=== PATIENT | female | born 1950 | race Caucasian/White ===

== ENCOUNTER 2020-05-14 14:10 | Outpatient (CLI) | payer MEDICARE, OTHER, SELFPAY ==
--- NOTE | 2020-05-14 14:28 | MM_ITS ---
WS: [id number] BILATERAL SCREENING DIGITAL MAMMOGRAM WITH CAD HISTORY: SCREENING COMPARISON: 09/14/2018 and 07/12/2017 Bilateral CC and MLO views submitted. Computer aided detection analyzed. Breast composition: There are scattered areas of fibroglandular density. No suspicious masses, microc alcifications or architectural distortion. Asymmetry seen on the LEFT CC projection anteriorly measur es 6 mm. Stable over multiple prior years. Benign calcifications in each breast. MM/[place] [id number] IMPRESSION: BI-RADS: 2-Benign FOLLOW UP: 1 Year Follow-up
== END 2020-05-14 14:11 | disposition home or self-care (01) ==
LOC: RADSHAW 14:17
PROVIDERS: PCP Physician Assistant Medical; Visit Provider Physician Assistant Medical
DX: Z12.31 Encounter for screening mammogram for malignant neoplasm of breast (principal)
CPT/HCPCS: 77067

== ENCOUNTER 2021-05-31 07:50 | Outpatient (CLI) | payer MEDICARE, OTHER, SELFPAY ==
--- NOTE | 2021-05-31 08:01 | MM_ITS ---
WS: [id number] Lul[facility] [place] BILATERAL SCREENING DIGITAL MAMMOGRAM WITH CAD HISTORY: Screening. COMPARISON: 05/14/2020 and 09/14/2018, 07/12/2017 Bilateral CC and MLO views submitted. Computer aided detection analyzed. Breast composition: There are scattered areas of fibroglandular density. No suspicious masses, microc alcifications or architectural distortion. There is an asymmetry measuring 6 mm in the anterior LEFT breast just lateral to the nipple which is been present on several prior examinations. Similar in felipa earance dating back to 2016. Benign calcifications in each breast. MM/[place] [id number] IMPRESSION: BI-RADS: 2-Benign FOLLOW UP: 1 Year Follow-up
== END 2021-05-31 07:51 | disposition home or self-care (01) ==
LOC: RADSHAW 07:54
PROVIDERS: PCP Physician Assistant Medical; Visit Provider Obstetrics & Gynecology
DX: Z12.31 Encounter for screening mammogram for malignant neoplasm of breast (principal)
CPT/HCPCS: 77067

== ENCOUNTER 2021-06-25 14:07 | Outpatient (CLI) | payer MEDICARE, OTHER, SELFPAY ==
--- NOTE | 2021-06-25 14:24 | XR_ITS ---
WS: [id number] PELVIS AND RIGHT HIP HISTORY: M25.559 - Pain in unspecified hip COMPARISON: None available. Right hip: No acute fracture or dislocation. Severe narrowing of the hip joint. Near bone upon bone w ith sclerosis on both sides of the hip joint. Loss of the normal smooth cortex of the femoral head. M ild osteophytic ridging at the RIGHT hip joint. Prior LEFT hip arthroplasty. Asymmetric disc space narrowing at L4-5. XR/XR hip RT 2-3V wo/w pel* [id number] IMPRESSION: 1. No hip fracture. 2. Severe RIGHT hip joint osteoarthritis. 3. Prior LEFT hip arthroplasty.
[2021-06-25 16:05] LABS: Alanine Aminotransferase 14 U/L (0-33); Albumin Level 3.9 g/dL (3.5-5.2); Alkaline Phosphatase 94 IU/L (35-105); Aspartate Amino Transferase 18 U/L (0-32); Blood Urea Nitrogen 11 mg/dL (8-23); C Reactive Protein 5.4 mg/L (0.0-4.9); Carbon Dioxide 30 mmol/L (22-29); Chloride 101 mmol/L (98-107); Glomerular Filtration Rate 71.3 mL/min (90-130); Glucose 98 mg/dL (65-115); Osmolality Calculated 287 mOsm/kg (285-295); Sodium 139 mmol/L (136-145); Thyroid Stimulating Hormone 1.52 uIU/mL (0.27-4.20); Total Bilirubin 0.3 mg/dL (0.15-1.2); Total Protein 6.9 g/dL (6.6-8.7)
[2021-06-25 16:08] LABS: Erythrocyte Sedimentation Rate 29 mm/hr (0-15)
[2021-06-29 15:52] LABS: Anti-Nuclear Antibody Pattern Nuclear, Speckled; Anti-Nuclear Antibody Screen POSITIVE (NEGATIVE)
== END 2021-06-25 14:08 | disposition home or self-care (01) ==
LOC: RAD 14:14
PROVIDERS: PCP Physician Assistant Medical; Visit Provider Nurse Practitioner Family
DX: I10 Essential (primary) hypertension (principal); R53.83 Other fatigue; Z96.641 Presence of right artificial hip joint; M16.11 Unilateral primary osteoarthritis, right hip
CPT/HCPCS: 36415; 73502; 80053; 84443; 85651; 86038; 86140; 86431

== ENCOUNTER → 2021-07-12 10:52 | Outpatient (BNVA) | payer MEDICARE, OTHER, SELFPAY | PROVIDERS: PCP Physician Assistant Medical; Visit Provider Nurse Practitioner Family | DX: E55.9 Vitamin D deficiency, unspecified (principal); I10 Essential (primary) hypertension | CPT/HCPCS: 82306 ==

== ENCOUNTER → 2021-08-06 09:00 | Outpatient (BNVA) | payer MEDICARE, OTHER, SELFPAY | PROVIDERS: PCP Nurse Practitioner Family; Visit Provider Internal Medicine | DX: R76.8 Other specified abnormal immunological findings in serum (principal); M19.90 Unspecified osteoarthritis, unspecified site; R53.83 Other fatigue; Z79.899 Other long term (current) drug therapy; Z11.59 Encounter for screening for other viral diseases | CPT/HCPCS: 36415; 80053; 81001; 81003; 82533; 82550; 82728; 82784; 83516; 83540; 83735; 84100; 85025; 85651; 86140; 86160; 86431; 86704; 86803; 86812; 87340; 99204 ==

== ENCOUNTER 2021-08-12 14:49 | Outpatient (CLI) | payer MEDICARE, OTHER, SELFPAY ==
--- NOTE | 2021-08-12 14:54 | XR_ITS ---
WS: [id number] RIGHT HAND: 2 VIEW(S) TECHNIQUE: PA and lateral. HISTORY: Chronic joint pain. COMPARISON: None available. No acute fracture or dislocation. There is mild overlapping of the second metacarpal head with the proximal second phalanx. This is pro bably due to mild subluxation. No erosions are identified. Mild narrowing of the interphalangeal join t spaces. Moderate narrowing of the first carpometacarpal joint space. XR/XR hand RT 2V [id number] IMPRESSION: Osteoarthritis at the interphalangeal joint spaces and at the first carpometaca rpal joint space.
--- NOTE | 2021-08-12 14:54 | XR_ITS ---
WS: [id number] LUMBAR SPINE: 3 VIEWS TECHNIQUE: AP, lateral and L5-S1 spot. HISTORY: Joint pain, chronic. COMPARISON: None available. Degenerative LEFT rotoscoliosis of the lumbar spine. Asymmetric disc space narrowing at the L2-3 and L3-4 vertebral bodies. No fractures. 5 mm retrolisthesis of L2. SI joints are symmetric bilaterally. No soft tissue abnormalities. Prior bilateral hip arthroplasties. XR/XR lumbar spine 2-3V* [id number] IMPRESSION: 1. Mild rotoscoliosis lumbar spine. 2. Asymmetric disc space narrowing at L2-3 and L3-4.
--- NOTE | 2021-08-12 14:54 | XR_ITS ---
WS: [id number] LEFT HAND: 2 VIEW(S) TECHNIQUE: PA and lateral. HISTORY: Chronic bilateral pain. COMPARISON: None available. No acute fracture or dislocation. Mild diffuse interphalangeal joint space narrowing. Moderate arthritis at the first and second carpom etacarpal articulations. No erosions at the metacarpal heads. XR/XR hand LT 2V [id number] IMPRESSION: 1. Mild osteoarthritis at the interphalangeal joint spaces. 2. Moderate osteoarthritis at the first and second carpal metacarpal joint spa yuniel.
== END 2021-08-12 14:50 | disposition home or self-care (01) ==
PROVIDERS: PCP Nurse Practitioner Family; Visit Provider Internal Medicine
DX: R76.8 Other specified abnormal immunological findings in serum (principal)
CPT/HCPCS: 72100; 73120

== ENCOUNTER → 2021-08-26 10:04 | Outpatient (BNVA) | payer MEDICARE, OTHER, SELFPAY | PROVIDERS: PCP Nurse Practitioner Family; Visit Provider Internal Medicine | DX: R76.8 Other specified abnormal immunological findings in serum (principal); M19.90 Unspecified osteoarthritis, unspecified site; R53.83 Other fatigue; R70.0 Elevated erythrocyte sedimentation rate; Z79.899 Other long term (current) drug therapy; Z11.1 Encounter for screening for respiratory tuberculosis; D53.9 Nutritional anemia, unspecified; R25.1 Tremor, unspecified; M54.50 Low back pain, unspecified | CPT/HCPCS: 36415; 81003; 82533; 82550; 84155; 84165; 85651; 86140; 86480; 99214 ==

== ENCOUNTER → 2021-10-01 08:16 | Outpatient (BNVA) | payer MEDICARE, OTHER, SELFPAY | PROVIDERS: PCP Nurse Practitioner Family; Referring Provider Nurse Practitioner Family; Visit Provider Internal Medicine | DX: E27.40 Unspecified adrenocortical insufficiency (principal); D53.9 Nutritional anemia, unspecified; R53.83 Other fatigue | CPT/HCPCS: 99204 ==

== ENCOUNTER → 2021-11-26 09:54 | Outpatient (BNVA) | payer MEDICARE, OTHER, SELFPAY | PROVIDERS: PCP Nurse Practitioner Family; Visit Provider Internal Medicine | DX: D53.9 Nutritional anemia, unspecified (principal); E27.40 Unspecified adrenocortical insufficiency; Z79.899 Other long term (current) drug therapy; M19.90 Unspecified osteoarthritis, unspecified site; R76.8 Other specified abnormal immunological findings in serum; R70.0 Elevated erythrocyte sedimentation rate | CPT/HCPCS: 85025 ==

== ENCOUNTER → 2021-11-29 09:46 | Outpatient (BNVA) | payer MEDICARE, OTHER, SELFPAY | PROVIDERS: PCP Nurse Practitioner Family; Visit Provider Internal Medicine | DX: R70.0 Elevated erythrocyte sedimentation rate (principal); R76.8 Other specified abnormal immunological findings in serum; M19.90 Unspecified osteoarthritis, unspecified site; Z79.899 Other long term (current) drug therapy; D53.9 Nutritional anemia, unspecified; E27.40 Unspecified adrenocortical insufficiency | CPT/HCPCS: 80053; 84439; 85025; 85651; 86140; 86376 ==

== ENCOUNTER → 2021-12-01 10:39 | Outpatient (BNVA) | payer MEDICARE, OTHER, SELFPAY | PROVIDERS: PCP Nurse Practitioner Family; Visit Provider Internal Medicine | DX: E27.40 Unspecified adrenocortical insufficiency (principal); R53.83 Other fatigue | CPT/HCPCS: 99214 ==

== ENCOUNTER → 2021-12-07 08:24 | Outpatient (BNVA) | payer MEDICARE, OTHER, SELFPAY | PROVIDERS: PCP Nurse Practitioner Family; Visit Provider Internal Medicine | DX: M54.50 Low back pain, unspecified (principal); M19.90 Unspecified osteoarthritis, unspecified site; R70.0 Elevated erythrocyte sedimentation rate; R76.8 Other specified abnormal immunological findings in serum; Z96.641 Presence of right artificial hip joint | CPT/HCPCS: 72040; 99214 ==

== ENCOUNTER 2021-12-07 09:41 | Outpatient (CLI) | payer MEDICARE, OTHER, SELFPAY ==
--- NOTE | 2021-12-07 09:47 | XR_ITS ---
WS: [id number] CERVICAL SPINE FLEXION EXTENSION TECHNIQUE: 3 views of the cervical spine: lateral neutral, flexion and extension views. CLINICAL INFORMATION: R70.0 - Elevated erythrocyte sedimentation rate COMPARISON: None. FINDINGS: Straightening of the normal cervical lordosis with slight reversal. Advanced spondylitic changes. Sli ght anterolisthesis C2 on C3. Disc space narrowing worse at C3-C4, C5-C6, and C6-C7. Normal preverteb ral soft tissues. Normal C1-2 articulation. No significant instability on flexion-extension. Normal p revertebral soft tissues. Posterior elements are normal. No other significant findings. XR/XR cervical spine fl/ex [id number] IMPRESSION: Advanced spondylitic changes. No instability on flexion-extension.
== END 2021-12-07 09:42 | disposition home or self-care (01) ==
PROVIDERS: PCP Nurse Practitioner Family; Visit Provider Internal Medicine
DX: R70.0 Elevated erythrocyte sedimentation rate (principal); M54.50 Low back pain, unspecified
CPT/HCPCS: 72040

== ENCOUNTER → 2021-12-20 09:20 | Outpatient (BNVA) | payer MEDICARE, OTHER, SELFPAY | PROVIDERS: PCP Nurse Practitioner Family; Referring Provider Internal Medicine; Visit Provider Anesthesiology Pain Medicine | DX: M47.816 Spondylosis without myelopathy or radiculopathy, lumbar region (principal); M41.9 Scoliosis, unspecified | CPT/HCPCS: 99204 ==

== ENCOUNTER → 2021-12-29 14:27 | Outpatient (BNVA) | payer MEDICARE, OTHER, SELFPAY | PROVIDERS: PCP Nurse Practitioner Family; Visit Provider Anesthesiology Pain Medicine | DX: Z79.891 Long term (current) use of opiate analgesic (principal); M47.816 Spondylosis without myelopathy or radiculopathy, lumbar region | CPT/HCPCS: 64493; 64494; 64495; J3490 ==

== ENCOUNTER 2022-01-12 10:36 | Outpatient (CLI) | payer MEDICARE, OTHER, SELFPAY ==
--- NOTE | 2022-01-12 11:00 | XR_ITS ---
WS: [id number] DEXA (DUAL ENERGY X-RAY ABSORPTIOMETRY) Bone mineral density was performed using a Open[employer] machine. HISTORY: Check bone density COMPARISON: 10/30/2018 Lumbar spine BMD (L1-L4): 1.041 g/cm2 T score: -1.2 Z score: -0.7 Left forearm BMD: 0.779 g/cm2. T score: -1.1 Z score: 0.6 Compared to the prior study from 10/30/2018. Lumbar spine bone mineral density has decreased by 0.9%. LEFT forearm bone mineral density has increased by 1.1%. XR/XR DEXA axial skeleton* [id number] IMPRESSION: OSTEOPENIA based upon the WHO classification for females. No significant change in bone mineral density since the prior study.
== END 2022-01-12 10:37 | disposition home or self-care (01) ==
LOC: RAD 10:41
PROVIDERS: PCP Nurse Practitioner Family; Visit Provider Internal Medicine
DX: E27.40 Unspecified adrenocortical insufficiency (principal); D53.9 Nutritional anemia, unspecified; M85.80 Other specified disorders of bone density and structure, unspecified site
CPT/HCPCS: 77080

== ENCOUNTER → 2022-01-18 10:04 | Outpatient (BNVA) | payer MEDICARE, OTHER, SELFPAY | PROVIDERS: PCP Nurse Practitioner Family; Visit Provider Anesthesiology Pain Medicine | DX: M47.816 Spondylosis without myelopathy or radiculopathy, lumbar region (principal); M41.9 Scoliosis, unspecified; M79.604 Pain in right leg; M79.605 Pain in left leg | CPT/HCPCS: 99214 ==

== ENCOUNTER → 2022-01-26 14:21 | Outpatient (BNVA) | payer MEDICARE, OTHER, SELFPAY | PROVIDERS: PCP Nurse Practitioner Family; Visit Provider Anesthesiology Pain Medicine | DX: M47.816 Spondylosis without myelopathy or radiculopathy, lumbar region (principal) | CPT/HCPCS: 64635; 64636; J1030 ==

== ENCOUNTER → 2022-02-04 12:28 | Day surgery (SDC) | payer MEDICARE, OTHER, SELFPAY ==
[2022-02-04 12:30] VITALS: BP 159/77; PULSE 61; RESP 18; TEMP 36.2; O2SAT 97; BMI 38.9
[2022-02-04] MEDS: cosyntropin 0.25 mg SDV IVP (12:53)
[2022-02-04 13:34] LABS: Cosyntropin Baseline 3.46 mcg/dL
[2022-02-04 13:45] LABS: Creatine Phosphokinase 79 U/L (26-192)
[2022-02-04 14:09] LABS: Cosyntropin 30 Minute 16.64 mcg/dL
[2022-02-04 14:42] LABS: Cosyntropin 1 Hour 18.96 mcg/dL
== END ==
PROVIDERS: PCP Nurse Practitioner Family; Referring Provider Internal Medicine; Visit Provider Internal Medicine
DX: E27.40 Unspecified adrenocortical insufficiency (principal); D53.9 Nutritional anemia, unspecified
CPT/HCPCS: 36415; 82533; 82550; 96374; J0834

== ENCOUNTER → 2022-02-14 13:18 | Outpatient (BNVA) | payer MEDICARE, OTHER, SELFPAY | PROVIDERS: PCP Nurse Practitioner Family; Visit Provider Anesthesiology Pain Medicine | DX: M47.816 Spondylosis without myelopathy or radiculopathy, lumbar region (principal) | CPT/HCPCS: 64635; 64636; J1030 ==

== ENCOUNTER → 2022-02-16 10:07 | Outpatient (BNVA) | payer MEDICARE, OTHER, SELFPAY | PROVIDERS: PCP Nurse Practitioner Family; Visit Provider Internal Medicine | DX: R70.0 Elevated erythrocyte sedimentation rate (principal); M19.90 Unspecified osteoarthritis, unspecified site; R76.8 Other specified abnormal immunological findings in serum; Z79.899 Other long term (current) drug therapy | CPT/HCPCS: 80053; 82533; 82550; 85025; 85651; 86140 ==

== ENCOUNTER → 2022-02-28 08:53 | Outpatient (BNVA) | payer MEDICARE, OTHER, SELFPAY | PROVIDERS: PCP Nurse Practitioner Family; Visit Provider Anesthesiology Pain Medicine | DX: M47.816 Spondylosis without myelopathy or radiculopathy, lumbar region (principal); M41.9 Scoliosis, unspecified; M79.604 Pain in right leg; M79.605 Pain in left leg | CPT/HCPCS: 99214 ==

== ENCOUNTER 2022-02-28 09:50 | Outpatient (CLI) | payer MEDICARE, OTHER, SELFPAY ==
[2022-03-01 11:17] LABS: CENTROMERE B ANTIBODY <1.0 NEG AI (<1.0 NEG); JO-1 ANTIBODY <1.0 NEG AI (<1.0 NEG); RNP ANTIBODY <1.0 NEG AI (<1.0 NEG); SCL-70 ANTIBODY <1.0 NEG AI (<1.0 NEG); SJOGREN'S ANTIBODY (SS-A) <1.0 NEG AI (<1.0 NEG); SM ANTIBODY <1.0 NEG AI (<1.0 NEG); SS-B <1.0 NEG AI (<1.0 NEG)
[2022-03-01 12:51] LABS: COMPLEMENT COMPONENT C3C 132 mg/dL (83-193); COMPLEMENT COMPONENT C4C 45 mg/dL (15-57)
[2022-03-01 14:37] LABS: THYROID PEROXIDASE ANTIBODIES <1 IU/mL (<9)
[2022-03-02 12:22] LABS: ANA SCREEN, IFA POSITIVE (NEGATIVE)
[2022-03-02 15:58] LABS: COMPLEMENT, TOTAL (CH50) >60 U/mL (31-60)
[2022-03-03 13:08] LABS: ANA PATTERN Nuclear, Speckled
[2022-03-03 15:47] LABS: DNA AB (DS) CRITHIDIA,IFA NEGATIVE (NEGATIVE)
== END 2022-02-28 09:51 | disposition home or self-care (01) ==
LOC: LAB 09:54
PROVIDERS: PCP Nurse Practitioner Family; Visit Provider Internal Medicine
DX: M79.7 Fibromyalgia (principal); R53.83 Other fatigue; R76.8 Other specified abnormal immunological findings in serum
CPT/HCPCS: 86160; 86162; 86235; 86255; 86376

== ENCOUNTER 2022-03-14 20:00 | Outpatient (CLI) | payer MEDICARE, OTHER, SELFPAY | END 2022-03-14 20:01 | disposition home or self-care (01) | LOC: SLEEP 03-15 10:31 | PROVIDERS: PCP Nurse Practitioner Family; Visit Provider Nurse Practitioner Family | DX: G47.33 Obstructive sleep apnea (adult) (pediatric) (principal) | CPT/HCPCS: 95810 ==

== ENCOUNTER → 2022-03-15 15:18 | Outpatient (BNVA) | payer MEDICARE, OTHER, SELFPAY | PROVIDERS: PCP Nurse Practitioner Family; Visit Provider Internal Medicine | DX: R76.8 Other specified abnormal immunological findings in serum (principal); M19.90 Unspecified osteoarthritis, unspecified site; Z79.899 Other long term (current) drug therapy; M54.50 Low back pain, unspecified | CPT/HCPCS: 99213; 99214 ==

== ENCOUNTER 2022-04-27 20:00 | Outpatient (CLI) | payer MEDICARE, OTHER, SELFPAY | END 2022-04-27 20:01 | disposition home or self-care (01) | LOC: SLEEP 04-28 04:09 | PROVIDERS: PCP Nurse Practitioner Family; Visit Provider Nurse Practitioner Family | DX: G47.33 Obstructive sleep apnea (adult) (pediatric) (principal) | CPT/HCPCS: 95811 ==

== ENCOUNTER → 2022-05-02 09:31 | Outpatient (BNVA) | payer MEDICARE, OTHER, SELFPAY | PROVIDERS: PCP Nurse Practitioner Family; Visit Provider Anesthesiology Pain Medicine | DX: M47.816 Spondylosis without myelopathy or radiculopathy, lumbar region (principal); M41.9 Scoliosis, unspecified; M79.604 Pain in right leg; M79.605 Pain in left leg | CPT/HCPCS: 99213 ==

== ENCOUNTER → 2022-05-30 09:24 | Outpatient (BNVA) | payer MEDICARE, OTHER, SELFPAY | PROVIDERS: PCP Nurse Practitioner Family; Visit Provider Internal Medicine | DX: Z13.1 Encounter for screening for diabetes mellitus (principal); R73.9 Hyperglycemia, unspecified; R53.83 Other fatigue; E66.01 Morbid (severe) obesity due to excess calories; G47.30 Sleep apnea, unspecified; E78.00 Pure hypercholesterolemia, unspecified; Z68.41 Body mass index [BMI] 40.0-44.9, adult | CPT/HCPCS: 99214 ==

== ENCOUNTER → 2022-05-31 09:43 | Outpatient (BNVA) | payer MEDICARE, OTHER, SELFPAY | PROVIDERS: PCP Nurse Practitioner Family; Visit Provider Internal Medicine | DX: R73.9 Hyperglycemia, unspecified (principal); E78.00 Pure hypercholesterolemia, unspecified; Z13.1 Encounter for screening for diabetes mellitus; R53.83 Other fatigue | CPT/HCPCS: 80061; 83036 ==

== ENCOUNTER 2022-08-01 06:00 | Outpatient (CLI) | payer MEDICARE, OTHER, SELFPAY | END 2022-08-01 06:01 | disposition home or self-care (01) | LOC: RAD 08-31 06:22 | PROVIDERS: PCP Nurse Practitioner Family; Visit Provider Nurse Practitioner Family | DX: M16.12 Unilateral primary osteoarthritis, left hip (principal) | CPT/HCPCS: 73502; 99214 ==

== ENCOUNTER → 2022-08-01 08:43 | Outpatient (BNVA) | payer MEDICARE, OTHER, SELFPAY | PROVIDERS: PCP Nurse Practitioner Family; Visit Provider Anesthesiology Pain Medicine | DX: M47.816 Spondylosis without myelopathy or radiculopathy, lumbar region (principal); M48.062 Spinal stenosis, lumbar region with neurogenic claudication; M79.604 Pain in right leg; M16.12 Unilateral primary osteoarthritis, left hip; M41.9 Scoliosis, unspecified | CPT/HCPCS: 73502; 99214 ==

== ENCOUNTER → 2022-08-01 10:36 | Outpatient (BNVA) | payer MEDICARE, OTHER, SELFPAY | PROVIDERS: PCP Nurse Practitioner Family; Visit Provider Internal Medicine | DX: R73.03 Prediabetes (principal); R53.83 Other fatigue; G47.30 Sleep apnea, unspecified; M81.0 Age-related osteoporosis without current pathological fracture; E66.9 Obesity, unspecified; L90.0 Lichen sclerosus et atrophicus; Z13.1 Encounter for screening for diabetes mellitus; Z68.39 Body mass index [BMI] 39.0-39.9, adult | CPT/HCPCS: 99214 ==

== ENCOUNTER → 2022-08-10 09:21 | Outpatient (BNVA) | payer MEDICARE, OTHER, SELFPAY | PROVIDERS: PCP Nurse Practitioner Family; Visit Provider Internal Medicine | DX: R76.8 Other specified abnormal immunological findings in serum (principal); Z79.899 Other long term (current) drug therapy; I10 Essential (primary) hypertension; M79.7 Fibromyalgia | CPT/HCPCS: 80053; 80061; 85025; 85651; 86140 ==

== ENCOUNTER → 2022-08-23 14:25 | Outpatient (BNVA) | payer MEDICARE, OTHER, SELFPAY | PROVIDERS: PCP Nurse Practitioner Family; Visit Provider Internal Medicine | DX: R76.8 Other specified abnormal immunological findings in serum (principal); Z79.899 Other long term (current) drug therapy; M79.7 Fibromyalgia; M19.90 Unspecified osteoarthritis, unspecified site | CPT/HCPCS: 99213; 99214 ==

== ENCOUNTER → 2022-08-31 08:27 | Outpatient (BNVA) | payer MEDICARE, OTHER, SELFPAY | PROVIDERS: PCP Nurse Practitioner Family; Visit Provider Anesthesiology Pain Medicine | DX: M47.816 Spondylosis without myelopathy or radiculopathy, lumbar region (principal); M41.9 Scoliosis, unspecified; M25.551 Pain in right hip; M54.10 Radiculopathy, site unspecified | CPT/HCPCS: 99214 ==

== ENCOUNTER → 2022-09-28 08:34 | Outpatient (BNVA) | payer MEDICARE, OTHER, SELFPAY | PROVIDERS: PCP Nurse Practitioner Family; Visit Provider Anesthesiology Pain Medicine | DX: M54.16 Radiculopathy, lumbar region (principal); M47.816 Spondylosis without myelopathy or radiculopathy, lumbar region; M41.9 Scoliosis, unspecified; M25.551 Pain in right hip; M79.604 Pain in right leg; M79.605 Pain in left leg | CPT/HCPCS: 99214 ==

== ENCOUNTER 2022-10-07 12:38 | Outpatient (CLI) | payer MEDICARE, OTHER, SELFPAY ==
--- NOTE | 2022-10-07 13:15 | MR_ITS ---
WS: [id number] MRI LUMBAR SPINE NONCONTRAST HISTORY: M48.062 - Spinal stenosis, lumbar region with neurogenic pain.... COMPARISON: Lumbar spine radiograph 08/12/2021 TECHNIQUE: Sagittal and axial multisequence imaging is submitted. Chronic biconcave fracture at T11. Retropulsion of the posterior superior endplate by 5 mm. This frac ture was also present on the radiograph from 08/12/2021. There is contact and slight displacement of t he conus. Lumbar degenerative scoliosis. Advanced degenerative disc disease and osteophytosis from L2 through L 5. Retrolisthesis of L2 and L3 by 5 mm. Marrow edema in the adjacent endplates of L3 and L4. Conus terminates normally at T12. T10-11: Moderate bilateral foraminal stenosis in part due to the retropulsion of T11. L1-L2: Diffuse disc bulging with facet and ligamentum flavum arthritis. Very small foraminal narrowin g. L2-L3: Retrolisthesis of L2 with annular disc bulging and facet and ligamentum flavum hypertrophy. Mi ld central, bilateral foraminal subarticular recess stenosis. Slightly greater stenosis RIGHT foramen . L3-L4: Marked annular disc bulging with severe ligamentum flavum and facet arthritis. Asymmetric disc space narrowing to the LEFT. There is deformity of the thecal sac and disc extension into the subart icular recesses. Most significant displacement of the LEFT L4 nerve root. Severe central, bilateral s ubarticular recess stenosis and moderate foraminal stenosis. L4-L5: Diffuse annular disc bulging. LEFT hemilaminectomy defect. Disc and osteophyte encroachment ca using LEFT subarticular recess and foraminal stenosis. L5-S1: Mild annular disc bulging and osteophytic ridging with a central disc protrusion. Mild central , bilateral subarticular recess and foraminal stenosis. Paravertebral soft tissues are negative. MR/MR lumbar spine wo con* [id number] IMPRESSION: 1. Advanced degenerative rotoscoliosis of the lumbar spine. Severe disc degene ration at L2-3, L3-4 and L4-5. 2. Biconcave remote T11 fracture with 5 mm retropulsion of the posterior super ior endplate. Moderate bilateral foraminal stenosis at T10-11 due to the T11 fr acture. 3. Severe central, bilateral subarticular recess and moderate foraminal stenos is at L3-4 is multifactorial. 4. LEFT subarticular recess and foraminal stenosis at L4-5. 5. Mild central, bilateral subarticular recess and foraminal stenosis at L2-3 and L5-S1.
== END 2022-10-07 12:39 | disposition home or self-care (01) ==
PROVIDERS: PCP Nurse Practitioner Family; Visit Provider Anesthesiology Pain Medicine
DX: M48.062 Spinal stenosis, lumbar region with neurogenic claudication (principal)
CPT/HCPCS: 72148

== ENCOUNTER → 2022-10-27 10:03 | Outpatient (BNVA) | payer MEDICARE, OTHER, SELFPAY | PROVIDERS: PCP Nurse Practitioner Family; Visit Provider Anesthesiology Pain Medicine | DX: M54.16 Radiculopathy, lumbar region (principal); M41.9 Scoliosis, unspecified; M47.816 Spondylosis without myelopathy or radiculopathy, lumbar region; M25.551 Pain in right hip | CPT/HCPCS: 99214 ==

== ENCOUNTER → 2022-11-08 10:41 | Outpatient (BNVA) | payer MEDICARE, OTHER, SELFPAY | PROVIDERS: PCP Nurse Practitioner Family; Visit Provider Internal Medicine | DX: R73.03 Prediabetes (principal); M81.0 Age-related osteoporosis without current pathological fracture; G62.9 Polyneuropathy, unspecified; G47.30 Sleep apnea, unspecified; R53.83 Other fatigue; E66.9 Obesity, unspecified; Z68.38 Body mass index [BMI] 38.0-38.9, adult | CPT/HCPCS: 99214 ==

== ENCOUNTER → 2022-11-24 09:45 | Outpatient (BNVA) | payer MEDICARE, OTHER, SELFPAY | PROVIDERS: PCP Nurse Practitioner Family; Visit Provider Internal Medicine | DX: L90.0 Lichen sclerosus et atrophicus (principal); G62.9 Polyneuropathy, unspecified; R73.03 Prediabetes; M81.0 Age-related osteoporosis without current pathological fracture; Z13.1 Encounter for screening for diabetes mellitus; R53.83 Other fatigue | CPT/HCPCS: 80053; 82306; 82310; 82607; 83036; 83970; 84425; 84439; 84443 ==

== ENCOUNTER → 2022-12-26 13:59 | Outpatient (BNVA) | payer MEDICARE, OTHER, SELFPAY | PROVIDERS: PCP Nurse Practitioner Family; Visit Provider Internal Medicine | DX: R76.8 Other specified abnormal immunological findings in serum (principal); M79.7 Fibromyalgia; M19.90 Unspecified osteoarthritis, unspecified site; M48.00 Spinal stenosis, site unspecified; G47.30 Sleep apnea, unspecified; R53.83 Other fatigue; G62.9 Polyneuropathy, unspecified | CPT/HCPCS: 99213 ==

== ENCOUNTER 2023-01-13 07:35 | Outpatient (CLI) | payer MEDICARE, OTHER, SELFPAY ==
--- NOTE | 2023-01-13 07:50 | MM_ITS ---
WS: [id number] VIEWS: MLO and CC views both breasts. 3D digital tomosynthesis is also included in this exam. Comparison made with prior exam of 09/21/2012, 05/16/2016, 07/12/2017, 09/14/2018, 05/14/2020. 05/31/2021. . Findings: There was no sign of mass, architectural distortion or suspicious calcification in either breast. Sta ble appearing nodular densities in both breasts.Scattered fibroglandular densities in both breasts. MM/[place] [id number] Impression: BI-RADS: 2-Benign FOLLOW-UP: 1 Year Follow-up This mammogram was also analyzed by the Computer Aided Detection System [employer].
== END 2023-01-13 07:36 | disposition home or self-care (01) ==
PROVIDERS: PCP Nurse Practitioner Family; Visit Provider Nurse Practitioner Family
DX: Z12.31 Encounter for screening mammogram for malignant neoplasm of breast (principal); R53.83 Other fatigue; G47.30 Sleep apnea, unspecified; R73.03 Prediabetes; E66.9 Obesity, unspecified; M81.0 Age-related osteoporosis without current pathological fracture; G62.9 Polyneuropathy, unspecified; E78.00 Pure hypercholesterolemia, unspecified; Z68.37 Body mass index [BMI] 37.0-37.9, adult
CPT/HCPCS: 77063; 77067; 99214

== ENCOUNTER → 2023-01-25 09:44 | Outpatient (BNVA) | payer MEDICARE, OTHER, SELFPAY | PROVIDERS: PCP Nurse Practitioner Family; Visit Provider Anesthesiology Pain Medicine | DX: M47.816 Spondylosis without myelopathy or radiculopathy, lumbar region (principal); M48.00 Spinal stenosis, site unspecified; G62.9 Polyneuropathy, unspecified; M41.9 Scoliosis, unspecified; M25.551 Pain in right hip | CPT/HCPCS: 99214 ==

== ENCOUNTER → 2023-03-15 09:25 | Outpatient (BNVA) | payer MEDICARE, OTHER, SELFPAY | PROVIDERS: PCP Nurse Practitioner Family; Visit Provider Nurse Practitioner Family | DX: I10 Essential (primary) hypertension (principal); R73.03 Prediabetes; L90.0 Lichen sclerosus et atrophicus | CPT/HCPCS: 80053; 80061; 82306; 83036; 84443; 85025 ==

== ENCOUNTER → 2023-04-18 08:59 | Outpatient (BNVA) | payer MEDICARE, OTHER, SELFPAY | PROVIDERS: PCP Nurse Practitioner Family; Visit Provider Internal Medicine | DX: E66.9 Obesity, unspecified (principal); E78.00 Pure hypercholesterolemia, unspecified; R73.03 Prediabetes | CPT/HCPCS: 80053; 80061; 82043; 83036 ==

== ENCOUNTER → 2023-04-24 10:14 | Outpatient (BNVA) | payer MEDICARE, OTHER, SELFPAY | PROVIDERS: PCP Nurse Practitioner Family; Visit Provider Internal Medicine | DX: E11.9 Type 2 diabetes mellitus without complications (principal); R53.83 Other fatigue; G47.30 Sleep apnea, unspecified; M81.0 Age-related osteoporosis without current pathological fracture; R76.8 Other specified abnormal immunological findings in serum; M79.7 Fibromyalgia; M19.90 Unspecified osteoarthritis, unspecified site; M48.00 Spinal stenosis, site unspecified; Z79.52 Long term (current) use of systemic steroids | CPT/HCPCS: 99214 ==

== ENCOUNTER → 2023-07-26 10:27 | Outpatient (BNVA) | payer MEDICARE, OTHER, SELFPAY | PROVIDERS: PCP Nurse Practitioner Family; Visit Provider Internal Medicine | DX: E11.9 Type 2 diabetes mellitus without complications (principal) | CPT/HCPCS: 80053; 80061; 82043; 83036 ==

== ENCOUNTER → 2023-08-01 14:04 | Outpatient (BNVA) | payer MEDICARE, OTHER, SELFPAY | PROVIDERS: PCP Nurse Practitioner Family; Visit Provider Internal Medicine | DX: R76.8 Other specified abnormal immunological findings in serum (principal); M79.7 Fibromyalgia; M19.90 Unspecified osteoarthritis, unspecified site; M48.00 Spinal stenosis, site unspecified; G47.30 Sleep apnea, unspecified; R53.83 Other fatigue; E11.9 Type 2 diabetes mellitus without complications; E78.00 Pure hypercholesterolemia, unspecified | CPT/HCPCS: 99213; 99214 ==

== ENCOUNTER → 2023-10-24 09:19 | Outpatient (BNVA) | payer MEDICARE, OTHER, SELFPAY | PROVIDERS: PCP Nurse Practitioner Family; Visit Provider Internal Medicine | DX: F41.9 Anxiety disorder, unspecified (principal); R70.0 Elevated erythrocyte sedimentation rate | CPT/HCPCS: 80053; 85025 ==

== ENCOUNTER → 2023-10-31 14:49 | Outpatient (BNVA) | payer MEDICARE, OTHER, SELFPAY | PROVIDERS: PCP Nurse Practitioner Family; Visit Provider Internal Medicine | DX: R76.8 Other specified abnormal immunological findings in serum (principal); M79.7 Fibromyalgia; M19.90 Unspecified osteoarthritis, unspecified site; M48.00 Spinal stenosis, site unspecified | CPT/HCPCS: 99214 ==

== ENCOUNTER 2024-01-15 08:10 | Outpatient (CLI) | payer MEDICARE, OTHER, SELFPAY ==
--- NOTE | 2024-01-15 08:41 | MM_ITS ---
WS: [id number] BILATERAL SCREENING DIGITAL TOMOSYNTHESIS MAMMOGRAM WITH CAD HISTORY: SCREENING COMPARISON: 01/13/2023, 05/31/2021 Bilateral CC and MLO views with tomosynthesis and synthetic mammography submitted. Computer aided det ection analyzed. Breast composition: There are scattered areas of fibroglandular density. No suspicious masses, microc alcifications or architectural distortion. Scattered nodules and asymmetries are stable. IMPRESSION: MM/[place] [id number] BI-RADS: 2-Benign FOLLOW UP: 1 Year Follow-up
== END 2024-01-15 08:11 | disposition home or self-care (01) ==
LOC: RAD 08:11
PROVIDERS: PCP Nurse Practitioner Family; Visit Provider Nurse Practitioner Family
DX: Z12.31 Encounter for screening mammogram for malignant neoplasm of breast (principal); R92.323 Mammographic fibroglandular density, bilateral breasts; N64.89 Other specified disorders of breast
CPT/HCPCS: 77063; 77067

== ENCOUNTER → 2024-01-25 08:38 | Outpatient (BNVA) | payer MEDICARE, OTHER, SELFPAY | PROVIDERS: PCP Nurse Practitioner Family; Visit Provider Internal Medicine | DX: E78.00 Pure hypercholesterolemia, unspecified (principal); R53.83 Other fatigue; G47.30 Sleep apnea, unspecified; M81.0 Age-related osteoporosis without current pathological fracture; E11.9 Type 2 diabetes mellitus without complications; I10 Essential (primary) hypertension | CPT/HCPCS: 80053; 80061; 82043; 83036 ==

== ENCOUNTER → 2024-01-29 15:44 | Outpatient (BNVA) | payer MEDICARE, OTHER, SELFPAY | PROVIDERS: PCP Nurse Practitioner Family; Visit Provider Nurse Practitioner Family | DX: E55.9 Vitamin D deficiency, unspecified (principal); M62.838 Other muscle spasm | CPT/HCPCS: 82306; 83735 ==

== ENCOUNTER → 2024-02-01 09:30 | Outpatient (BNVA) | payer MEDICARE, OTHER, SELFPAY | PROVIDERS: PCP Nurse Practitioner Family; Visit Provider Internal Medicine | DX: L90.0 Lichen sclerosus et atrophicus (principal); E11.9 Type 2 diabetes mellitus without complications; E55.9 Vitamin D deficiency, unspecified; E78.00 Pure hypercholesterolemia, unspecified; R53.83 Other fatigue | CPT/HCPCS: 99214 ==

== ENCOUNTER → 2024-04-23 09:47 | Outpatient (BNVA) | payer MEDICARE, OTHER, SELFPAY | PROVIDERS: PCP Nurse Practitioner Family; Visit Provider Internal Medicine | DX: E11.9 Type 2 diabetes mellitus without complications (principal); E55.9 Vitamin D deficiency, unspecified; E78.00 Pure hypercholesterolemia, unspecified; L90.0 Lichen sclerosus et atrophicus | CPT/HCPCS: 80053; 80061; 82043; 82306; 83036 ==

== ENCOUNTER → 2024-07-04 09:14 | Outpatient (BNVA) | payer MEDICARE, OTHER, SELFPAY | PROVIDERS: PCP Nurse Practitioner Family; Visit Provider Internal Medicine | DX: E11.9 Type 2 diabetes mellitus without complications (principal); E78.00 Pure hypercholesterolemia, unspecified; E55.9 Vitamin D deficiency, unspecified; R53.83 Other fatigue; G47.30 Sleep apnea, unspecified; Z99.89 Dependence on other enabling machines and devices | CPT/HCPCS: 99214 ==

== ENCOUNTER → 2025-01-21 10:05 | Outpatient (BNVA) | payer MEDICARE, OTHER, SELFPAY | PROVIDERS: PCP Nurse Practitioner Family; Visit Provider Nurse Practitioner Family | DX: R25.2 Cramp and spasm (principal); E11.9 Type 2 diabetes mellitus without complications; E78.00 Pure hypercholesterolemia, unspecified; E55.9 Vitamin D deficiency, unspecified; L90.0 Lichen sclerosus et atrophicus | CPT/HCPCS: 80053; 80061; 82043; 82306; 83036; 83735 ==

== ENCOUNTER → 2025-01-23 11:48 | Outpatient (BNVA) | payer MEDICARE, OTHER, SELFPAY | PROVIDERS: PCP Nurse Practitioner Family; Visit Provider Internal Medicine | DX: E11.9 Type 2 diabetes mellitus without complications (principal); E55.9 Vitamin D deficiency, unspecified; R53.83 Other fatigue; G47.30 Sleep apnea, unspecified; E78.00 Pure hypercholesterolemia, unspecified | CPT/HCPCS: 99214 ==

== ENCOUNTER 2025-03-18 10:18 | Outpatient (CLI) | payer MEDICARE, OTHER, SELFPAY ==
--- NOTE | 2025-03-18 10:20 | MM_ITS ---
WS: [id number] BILATERAL 3D TOMOSYNTHESIS DIGITAL SCREENING MAMMOGRAPHY WITH CAD CLINICAL INFORMATION: Z12.39 - Encounter for other screening for malignant neop... HISTORY: Screening mammogram. No current complaints. COMPARISON: 2023 TECHNIQUE: Bilateral CC and MLO views. FINDINGS: Scattered fibroglandular densities bilaterally. No suspicious focal mass, asymmetry, calcifications, or architectural distortion. No evidence of malignancy. Punctate and lucent centered calcifications. MM/MM [facility] tomosynthesis [id number] IMPRESSION: DENSITY: There are scattered areas of fibroglandular density. BI-RADS: 2 - Benign. FOLLOW UP: 1 Year Follow-up Recommend return to annual screening mammography.
== END 2025-03-18 10:19 | disposition home or self-care (01) ==
LOC: RAD 10:21
PROVIDERS: PCP Nurse Practitioner Family; Visit Provider Nurse Practitioner Women's Health
DX: Z12.31 Encounter for screening mammogram for malignant neoplasm of breast (principal); R92.323 Mammographic fibroglandular density, bilateral breasts; R92.1 Mammographic calcification found on diagnostic imaging of breast
CPT/HCPCS: 77063; 77067

== ENCOUNTER → 2025-09-08 08:23 | Outpatient (BNVA) | payer MEDICARE, OTHER, SELFPAY | PROVIDERS: PCP Nurse Practitioner Family; Visit Provider Nurse Practitioner Family | DX: L90.0 Lichen sclerosus et atrophicus (principal); I10 Essential (primary) hypertension | CPT/HCPCS: 80053; 80061; 82306 ==